=== PATIENT | female | born 1990 | race Two or more races ===

== ENCOUNTER 2019-11-20 08:20 | Emergency (ER) | payer BC ==
[~2019-11-20] VITALS: Ht 167.6 cm; Wt 72.0 kg
[2019-11-20 08:26] VITALS: BP 128/68
[2019-11-20] MEDS ORDERED: LORAZEPAM 1MG TABLET PO ONE (09:15)
== END 2019-11-20 11:46 | disposition home or self-care (01) ==
LOC: ER 08:20
DX: F41.9 Anxiety disorder, unspecified (principal)
CPT/HCPCS: 93005; 99283